=== PATIENT | male | born 1985 | race Caucasian/White ===

== ENCOUNTER 2021-10-01 01:24 | Emergency (ER) | payer OTHER ==
[2021-10-01 01:36] VITALS: TEMP 98
--- NOTE | 2021-10-01 01:48 | ED ---
Psych HPI - General Chief Complaint: Psychiatric Symptoms Stated Complaint: Mental Health Time Seen by Provider: 10/01/21 01:38 Source: police, RN notes reviewed, old records reviewed Mode of arrival: ambulatory Limitations: altered mental status, physical limitation - History of Present Illness Initial Comments: This is a 35-year-old male who was petition for psychiatric evaluation and treatment. Patient just released from other facility other inpatient hospitalization for drug abuse. Patient does appear to be made maybe going to some mild withdrawal symptoms currently. Patient had difficulty getting back into his own house. He was called to pickle pumper the patient from [facility] upon discharge. They bring patient to our hospital as he was unable to get into his own house significant withdrawal symptoms and the temperature outside. MD Complaint: altered mental status -: hour(s) Associated Psychiatric Symptoms: racing thoughts, visual hallucinations, delusions Improves With: none Worsens With: none Context: recent drug abuse, significant life stressor Associated Symptoms: denies other symptoms Treatments Prior to Arrival: placed on mental health hold - Related Data Allergies Allergy/AdvReac Type Severity Reaction Status Date / Time No Known Allergies Allergy Verified 10/01/21 01:31 Review of Systems ROS Statement: Those systems with pertinent positive or pertinent negative responses have been documented in the HPI. ROS Other: All systems not noted in ROS Statement are negative. Past Medical History Past Medical History: Unable to Obtain History of Any Multi-Drug Resistant Organisms: Unobtainable Past Surgical History: Unable to Obtain Past Psychological History: Unable to Obtain Smoking Status: Never smoker Past Alcohol Use History: None Reported Past Drug Use History: IV Drug Use General Exam Limitations: no limitations General appearance: alert, in no apparent distress, anxious Head exam: Present: atraumatic, normocephalic, normal inspection Eye exam: Present: normal appearance, PERRL, EOMI. Absent: scleral icterus, conjunctival injection, periorbital swelling ENT exam: Present: normal exam, mucous membranes moist Neck exam: Present: normal inspection. Absent: tenderness, meningismus, lymphadenopathy Respiratory exam: Present: normal lung sounds bilaterally. Absent: respiratory distress, wheezes, rales, rhonchi, stridor Cardiovascular Exam: Present: regular rate, normal rhythm, normal heart sounds. Absent: systolic murmur, diastolic murmur, rubs, gallop, clicks GI/Abdominal exam: Present: soft, normal bowel sounds. Absent: distended, tenderness, guarding, rebound, rigid Extremities exam: Present: normal inspection, full ROM, normal capillary refill. Absent: tenderness, pedal edema, joint swelling, calf tenderness Back exam: Present: normal inspection Neurological exam: Present: alert, oriented X3, CN II-XII intact Psychiatric exam: Present: normal affect, normal mood Skin exam: Present: warm, dry, intact, normal color. Absent: rash Course Vital Signs 10/01/21 10/01/21 10/01/21 01:31 02:38 04:26 Temperature 98.0 F Pulse Rate 98 89 90 Respiratory 20 18 18 Rate Blood Pressure 81/61 102/73 112/74 O2 Sat by Pulse 98 98 97 Oximetry - Reevaluation(s) Reevaluation #1: 10/01/21 06:15 Medical record is reviewed Reevaluation #2: 10/01/21 06:15 Symptoms of withdrawal are mildly improved mildly psychotic Reevaluation #3: 10/01/21 06:15 Medically clear for psychiatric evaluation Medical Decision Making - Medical Decision Making 35 male to the ER for evaluation. Patient has history of substance abuse and opiate abuse. Patient is not homicidal or suicidal. Patient seen in however psychiatry here in the ER and is okay for discharge home Disposition Clinical Impression: Drug-induced psychotic disorder, Drug abuse Disposition: HOME SELF-CARE Condition: Fair Instructions (If sedation given, give patient instructions): Polysubstance Abuse (ED) Is patient prescribed a controlled substance at d/c from ED?: No Referrals: None,Stated [Primary Care Provider] - 1-2 days
[2021-10-01] MEDS ORDERED: LORazepam 2 MG/ML INJ IM STA (02:15)
[2021-10-01] MEDS ORDERED: cloNIDine HCL 0.1 MG TAB PO STA (02:15)
[2021-10-01 02:39] VITALS: RESP 18
[2021-10-01] MEDS ORDERED: cloNIDine 0.1 MG/24HR PATCH TRANSDERM STA (02:39)
[2021-10-01 04:27] VITALS: BP 112/74; PULSE 90
== END 2021-10-01 07:00 | disposition home or self-care (01) ==
LOC: EC 01:24
DX: F19.159 Other psychoactive substance abuse with psychoactive substance-induced psychotic disorder, unspecified (principal)
CPT/HCPCS: 82075; 99285; 96372; J2060